=== PATIENT | female | born 1980 | race Caucasian/White ===

== ENCOUNTER 2021-06-22 16:54 | Emergency (ER) | payer SELFPAY ==
[2021-06-22 18:48] LABS: Absolute Lymphocytes (CBC) 1.3 K/uL (0.7-4.9); Basophils % 0.3 % (0-1.3); Hematocrit 40.6 % (36.0-45.0); Lymphocytes % 6.7 % (15.3-44.8); MPV 10.3 fL (7.6-11.3); RBC Red Blood Cell Count 4.48 M/uL (3.86-4.86)
[2021-06-22 18:57] LABS: Protime INR 0.97
[2021-06-22] MEDS ORDERED: NA CHLORIDE 0.9% 2,000 ML ONE (19:03)
[2021-06-22] MEDS ORDERED: ONDANSETRON 4 MG/2 ML VIAL ONE (19:03)
[2021-06-22] MEDS ORDERED: FAMOTIDINE 20 MG/2 ML VIAL IV ONE (19:03)
[2021-06-22 19:07] LABS: ALT/SGPT 21 U/L (12-78); AST/SGOT 12 U/L (15-37); Albumin 3.7 g/dL (3.4-5.0); Alkaline Phosphatase 51 U/L (45-117); BUN Blood Urea Nitrogen 6 mg/dL (7-18); Bicarbonate 20 mmol/L (21-32); Bilirubin Direct < 0.1 mg/dL (0-0.2); Bilirubin Total 0.2 mg/dL (0.2-1.0); Creatine Phosphokinase 76 U/L (26-192); Glucose Level 100 mg/dL (74-106); NT PRO-BNP 41 pg/mL (<125); Potassium 3.2 mmol/L (3.5-5.1); Protein, Total 7.3 g/dL (6.4-8.2); Sodium Level 142 mmol/L (136-145); Troponin (Emerg Dept Use Only) < 0.02 ng/mL (0.0-0.045)
[2021-06-22 19:52] LABS: Urine Blood 1+ (Negative); Urine Glucose Negative (Negative); Urine Protein Negative (Negative); Urine Specific Gravity 1.015 (1.005-1.030)
[2021-06-22 20:05] LABS: Blood Morphology Comment NOT SEEN (NOT SEEN); Platelet Estimate ADEQ
--- NOTE | 2021-06-22 20:24 | ER ---
Nurse's Notes [facility] Name: Ruthie Jacobo Age: 41 yrs Sex: Female : 1980 Arrival Date: 06/22/2021 Time: 16:56 Bed 13 Private MD: Diagnosis: Alcohol use, unspecified with intoxication;Heat exhaustion, unspecified Presentation: 06/22 17:00 Chief complaint: Spouse and/or significant other states: "[place]. No ch5 food or water. 17:00 Method Of Arrival: EMS: [facility] ch5 17:00 Coronavirus screen: At this time, unable to obtain information related to travel ch5 outside the [place] Ebola Screen: No symptoms or risks identified at this time. Initial Sepsis Screen: Does the patient meet any 2 criteria? No. Patient's initial sepsis screen is negative. Does the patient have a suspected source of infection? No. Patient's initial sepsis screen is negative. Risk Assessment: Do you want to hurt yourself or someone else? Patient reports no desire to harm self or others. Onset of symptoms is unknown. 17:00 Acuity: PAULIE 3 ch5 Triage Assessment: 17:00 General: Appears in no apparent distress. Behavior is calm, drowsy, quiet. ch5 - Immunization history:: Unknown. - Social history:: Smoking status: unknown. Screenin:45 Abuse screen: Denies threats or abuse. Denies injuries from another. Nutritional ch5 screening: No deficits noted. Tuberculosis screening: No symptoms or risk factors identified. Fall Risk None identified. Assessment: 17:45 Reassessment: No changes from previously documented assessment. Pain:. Respiratory: No ch5 deficits noted. 18:54 Reassessment: Pt ambulated to bathroom and back. ch5 Vital Signs: 17:00 BP 107 / 66; Pulse 77; Resp 16; Temp 98.1; Pulse Ox 99% on R/A; Weight 74.84 kg; Pain ch5 0/10; 17:46 BP 93 / 68; Pulse 78; Resp 18; Pulse Ox 99% ; ch5 ED Course: 16:56 Patient arrived in ED. em1 16:56 Miguel Mansfield MD is Attending Physician. rubén 16:56 Miguel Camacho PA is PHCP. cp 16:57 Miguel Mansfield MD is Attending Physician. cp 17:00 Arm band placed on left wrist. ch5 17:13 Madi Christopher, RN is Primary Nurse. ch5 17:43 Triage completed. ch5 17:45 Bed in low position. Call light in reach. Side rails up X2. ch5 17:45 No provider procedures requiring assistance completed. Inserted saline lock: 18 gauge ch5 in left antecubital area, using aseptic technique. 18:54 Basic Metabolic Panel Sent. ch5 18:54 CBC with Diff Sent. ch5 18:54 LFT's Sent. ch5 Administered Medications: 18:46 Drug: NS 0.9% 1000 ml Route: IV; Rate: 1 bolus; Site: left antecubital; ch5 18:46 Drug: Zofran (Ondansetron) 4 mg Route: IVP; Site: left antecubital; ch5 18:46 Drug: Pepcid (famotidine) 20 mg Route: IVP; Site: left antecubital; ch5 18:46 Drug: NS 0.9% 1000 ml Route: IV; Rate: 1 bolus; Site: left antecubital; ch5 20:20 Drug: Potassium Effervescent Tablet 50 mEq Route: PO; iw Point of Care Testing: Urine : 19:54 hCG Reading: Negative; Control Reading: Positive; ch4 Outcome: 20:23 Discharge ordered by . yonathan 20:30 Patient left the ED. iw Signatures: Miguel Mansfield MD MD cha Williams, Irene, RN Luis Manuel Cameron em1 Miguel Camacho PA PA Marquita Brizuela, KARAN RUSSO [facility] Madi Christopher RN RN [facility]
--- NOTE | 2021-06-22 20:24 | EDPHYS ---
Physician Documentation [facility] Name: Ruthie Jacobo Age: 41 yrs Sex: Female : 1980 Arrival Date: 06/22/2021 Time: 16:56 Bed 13 Private MD: ED Physician Miguel Mansfield HPI: 06/22 17:15 This 41 yrs old Female presents to ER via Unassigned with complaints of ETOH cp Abuse. 17:15 Patient brought to ED by EMS after reported episodes of nausea and vomiting today. EMS cp called to [place] and patient found to be intoxicated and reportedly outside since this morning. - Immunization history:: Unknown. - Social history:: Smoking status: unknown. ROS: 17:20 Constitutional: Negative for fever. cp 17:20 Eyes: Negative for injury, pain, redness, and discharge. cp 17:20 Cardiovascular: Negative for chest pain. 17:20 Respiratory: Negative for shortness of breath, wheezing. 17:20 Abdomen/GI: Positive for nausea and vomiting, Negative for diarrhea, constipation, hematemesis, black/tarry stool, rectal bleeding. 17:20 Neuro: Negative for seizure activity. 17:20 Psych: Positive for alcohol intoxication. 17:20 All other systems are negative. Exam: 17:25 Constitutional: The patient appears in no acute distress, non-diaphoretic, non-toxic, cp well developed, well nourished. 17:25 Head/Face: Normocephalic, atraumatic. cp 17:25 Eyes: Pupils: equal, round, and reactive to light and accomodation, Conjunctiva: normal, no exudate, no injection, Sclera: no appreciated abnormality, Lids and lashes: appear normal, bilaterally. 17:25 ENT: External ear(s): are unremarkable, Ear canal(s): are normal, clear, TM's: dullness, bilaterally. 17:25 Neck: C-spine: vertebral tenderness, is not appreciated, crepitus, is not appreciated, ROM/movement: is normal, is supple, without pain, no range of motions limitations. 17:25 Chest/axilla: Inspection: normal, Palpation: is normal, no crepitus, no tenderness. 17:25 Cardiovascular: Rate: normal, Rhythm: regular. 17:25 Respiratory: the patient does not display signs of respiratory distress, Respirations: normal, no use of accessory muscles, no retractions, labored breathing, is not present, Breath sounds: are clear throughout, no decreased breath sounds, no stridor, no wheezing. 17:25 Abdomen/GI: Inspection: abdomen appears normal, Palpation: abdomen is soft and non-tender, in all quadrants. Vital Signs: 17:00 BP 107 / 66; Pulse 77; Resp 16; Temp 98.1; Pulse Ox 99% on R/A; Weight 74.84 kg; Pain ch5 0/10; 17:46 BP 93 / 68; Pulse 78; Resp 18; Pulse Ox 99% ; ch5 MDM: 16:56 Patient medically screened. rubén 20:22 Data reviewed: vital signs, nurses notes, lab test result(s), and as a result, I will cp discharge patient. 06/22 17:03 Order name: Basic Metabolic Panel 06/22 17:03 Order name: CBC with Diff 06/22 17:03 Order name: LFT's 06/22 17:03 Order name: Magnesium; Complete Time: 19:26 cp 06/22 17:03 Order name: NT PRO-BNP; Complete Time: 19:26 cp 06/22 17:03 Order name: PT-INR; Complete Time: 19:26 06/22 17:03 Order name: Troponin (emerg Dept Use Only); Complete Time: 19:26 cp 06/22 17:03 Order name: UDS 06/22 17:03 Order name: ETOH Level; Complete Time: 18:48 06/22 18:48 Interpretation: Abnormal: ETOH 217. 06/22 17:03 Order name: CK; Complete Time: 19:26 cp 06/22 17:04 Order name: Basic Metabolic Panel; Complete Time: 19:26 EDMS 06/22 19:26 Interpretation: Normal except: K 3.2; CL 113; CO2 20; BUN 6; CA 7.6. 06/22 17:04 Order name: CBC with Automated Diff; Complete Time: 20:10 EDMS 06/22 19:27 Interpretation: Normal except: WBC 19.10; JARVIS% 90.3; LYM% 6.7; MN% 1.8; NEUT A 17.2. cp 06/22 17:04 Order name: Liver (Hepatic) Function; Complete Time: 19:26 EDMS 06/22 20:11 Interpretation: Normal except: AST 12; GLOB 3.6; A/G 1.0. cp / 18:56 Order name: Manual Differential; Complete Time: 20:10 EDMS 06/22 20:10 Interpretation: Normal except: SEGS 92; LYM 6. cp 06/22 17:03 Order name: EKG; Complete Time: 17:04 06/22 17:03 Order name: Cardiac monitoring; Complete Time: 20:21 06/22 17:03 Order name: EKG - Nurse/Tech 06/22 17:03 Order name: IV Saline Lock; Complete Time: 18:54 06/22 17:03 Order name: Labs collected and sent; Complete Time: 18:54 06/22 17:03 Order name: O2 Per Protocol; Complete Time: 18:54 06/22 17:03 Order name: O2 Sat Monitoring; Complete Time: 18:54 06/22 17:03 Order name: Urine Dipstick-Ancillary (obtain specimen); Complete Time: 19:46 06/22 17:03 Order name: Urine Test (obtain specimen); Complete Time: 19:46 06/22 19:52 Order name: Urine Dipstick-Ancillary; Complete Time: 20:10 EDMS 06/22 20:11 Interpretation: Normal except: UKET Trace; UBLD 1+; UESTR Trace. 06/22 18:32 Order name: Labs - recollect needed: recollect lavender and blue top please; Complete em1 Time: 18:38 Administered Medications: 18:46 Drug: NS 0.9% 1000 ml Route: IV; Rate: 1 bolus; Site: left antecubital; ch5 18:46 Drug: Zofran (Ondansetron) 4 mg Route: IVP; Site: left antecubital; ch5 18:46 Drug: Pepcid (famotidine) 20 mg Route: IVP; Site: left antecubital; ch5 18:46 Drug: NS 0.9% 1000 ml Route: IV; Rate: 1 bolus; Site: left antecubital; ch5 20:20 Drug: Potassium Effervescent Tablet 50 mEq Route: PO; iw Point of Care Testing: Urine : 19:54 hCG Reading: Negative; Control Reading: Positive; ch4 Disposition Summary: 06/22/21 20:23 Discharge Ordered Location: Home cp Problem: new cp Symptoms: have improved cp Condition: Stable cp Diagnosis - Alcohol use, unspecified with intoxication cp - Heat exhaustion, unspecified cp Followup: cp - With: Private Physician - When: 2 - 3 days - Reason: Worsening of condition Discharge Instructions: - Discharge Summary Sheet cp - Alcohol Intoxication cp - Heat Exhaustion cp - Preventing Heat Exhaustion, Adult cp Forms: - Medication Reconciliation Form cp - Thank You Letter cp - Antibiotic Education cp - Prescription Opioid Use cp Addendum: 06/24/2021 15:10 Co-signature as Attending Physician, Miguel Mansfield MD I agree with the assessment and c gaming plan of care. Signatures: Dispatcher [employer] EDMiguel Nicholas MD MD cha Williams, Irene, RN RN Luis Manuel Mcmahan em1 Miguel Camacho PA PA cp Madi Christopher RN RN ch5 Corrections: (The following items were deleted from the chart) 06/22 17:04 17:03 Swartz ordered. cp cp 19:46 17:04 Swartz ordered. cp ch4 06/23 15:46 06/22 20:22 Data reviewed: vital signs, nurses notes, lab test result(s), EKG, and as a cp result, I will discharge patient, cp
[2021-06-22] MEDS ORDERED: POTASSIUM 25 MEQ EFFERV TAB ONE (20:35)
[2021-06-22 20:43] LABS: Barbiturates NEGATIVE (NEGATIVE); Benzodiazepines NEGATIVE (NEGATIVE); Cocaine NEGATIVE (NEGATIVE); METHAMPHETAM NEGATIVE (NEGATIVE); Methadone NEGATIVE (NEGATIVE); Opiates NEGATIVE (NEGATIVE); Phencyclidine NEGATIVE (NEGATIVE); THC Cannibis NEGATIVE (NEGATIVE)
[2021-06-22 20:56] VITALS: TEMP 98.1; O2SAT 99
[2021-06-22 20:58] VITALS: BP 93/68
== END 2021-06-22 20:30 | disposition home or self-care (01) ==
LOC: ER 16:54
DX: F10.929 Alcohol use, unspecified with intoxication, unspecified (principal); T67.5XXA Heat exhaustion, unspecified, initial encounter
CPT/HCPCS: 36415; 80048; 80076; 80307; 80320; 81003; 82550; 83735; 83880; 84484; 85025; 85610; 96374; 96375; 99284; J2405; J7030